=== PATIENT | male | born 1985 | race Caucasian/White ===

== ENCOUNTER 2018-09-13 21:06 | Observation (INO) ==
[2018-09-13 21:31] LABS: Basophils % 0.2 % (0.1-2.0); Eosinophils % 0.8 % (0.1-12.0); Hematocrit 45.5 % (42.0-52.0); Hemoglobin 15.7 g/dL (14.1-18.0); Lymphocytes # 1.1 K/mm3 (0.7-4.5); Lymphocytes % 25.9 % (10-50); Mean Corpuscular HGB Conc 34.5 g/dL (31.8-35.4); Mean Corpuscular Hemoglobin 31.6 pg (27.0-31.2); Mean Corpuscular Volume 91.6 fl (80-94); Monocytes # 0.4 K/mm3 (0.1-1.0); Monocytes % 8.3 % (1.7-9.3); Neutrophils # 2.8 K/mm3 (1.8-7.8); Neutrophils % 64.7 % (37.0-80.0); Platelet Count 146 K/mm3 (142-424); Red Blood Count 4.97 M/mm3 (4.60-6.20); Red Cell Distribution Width 12.6 % (11.5-17.5); White Blood Count 4.3 K/mm3 (4.8-10.8)
[2018-09-13 21:41] LABS: Albumin Level 3.5 gm/dL (3.4-5.0); Albumin/Globulin Ratio 0.9 (1.1-1.8); Anion Gap 11.6 mEq/L (5-15); Bilirubin,Total 0.4 mg/dL (0.2-1.0); Calcium 8.8 mg/dL (8.5-10.1); Globulin 3.8 gm/dl (1.3-3.2); Potassium 3.6 mmoL/L (3.5-5.1); Total Protein,Serum 7.3 gm/dL (6.4-8.2)
--- NOTE | 2018-09-13 22:45 | Emergency Department Note ---
ED Disposition Clinical Impression: Colitis Disposition: Admitted as Observation Condition on Discharge: Good Instructions: DI for Acute Abdomen Referrals: Nilesh Gaspar [Primary Care Provider] - - Critical Care Critical Care Time: No Attestation: On 09/13/18, the high probability of a clinically significant, sudden or life threatening deterioration of the following system(s) required my full and direct attention, intervention and personal management. The time I documented below is in addition to time spent performing reported procedures but includes the following listed in this critical care notation. Medical Decision Making - Medical Records Medical records reviewed: Yes: I reviewed the patient's medical records. - Zachary Inquiry Pt receiving controlled substance: No Vital Signs: 09/13/18 21:12 09/13/18 21:43 09/13/18 22:05 Temperature 97.9 F Temperature Source Oral Pulse Rate 69 Pulse Rate [Right Brachial] 90 90 Respiratory Rate 18 17 17 Blood Pressure 131/88 Blood Pressure [Right Arm] 137/90 138/81 Blood Pressure Mean [Right Arm] 105 100 Blood Pressure Source Automatic Cuff Blood Pressure Source [Right Arm] Automatic Cuff Automatic Cuff Blood Pressure Position Sitting Blood Pressure Position [Right Arm] Sitting Sitting 02 Sat by Pulse Oximetry 97 97 Oxygen Delivery Method Room Air Room Air Room Air 09/13/18 22:30 Temperature Temperature Source Pulse Rate Pulse Rate [Right Brachial] 84 Respiratory Rate 18 Blood Pressure Blood Pressure [Right Arm] 137/84 Blood Pressure Mean [Right Arm] 101 Blood Pressure Source Blood Pressure Source [Right Arm] Automatic Cuff Blood Pressure Position Blood Pressure Position [Right Arm] Sitting 02 Sat by Pulse Oximetry 97 Oxygen Delivery Method Room Air - Lab Data Lab results reviewed: Yes: I reviewed the patient's lab results. Lab Results 09/13/18 21:20: WBC 4.3 L, RBC 4.97, Hgb 15.7, Hct 45.5, MCV 91.6, MCH 31.6 H, MCHC 34.5, RDW 12.6, Plt Count 146, MPV 8.0, Neut % (Auto) 64.7, Lymph % (Auto) 25.9, Davidson % (Auto) 8.3, Eos % (Auto) 0.8, Baso % (Auto) 0.2, Neut # (Auto) 2.8, Lymph # (Auto) 1.1, Davidson # (Auto) 0.4, Eos # (Auto) 0.0, Baso # (Auto) 0.0 09/13/18 21:20: Sodium 140, Potassium 3.6, Chloride 103, Carbon Dioxide 29, Anion Gap 11.6, BUN 16, Creatinine 1.10, Estimated Creat Clear 129, Estimated GFR 76, Est GFR ( Amer) 92, Glucose 114 H, Calcium 8.8, Total Bilirubin 0.4, AST 19, ALT 37, Alkaline Phosphatase 53, Total Protein 7.3, Albumin 3.5, Globulin 3.8 H, Albumin/Globulin Ratio 0.9 L, Amylase 34 09/13/18 21:20: Lipase 114 Result diagrams: 09/13/18 21:20 09/13/18 21:20 Orders (Tests/Meds): ED MEDICATIONS Discontinued Medications Generic Name Dose Route Start Last Admin Trade Name Freq PRN Reason Stop Dose Admin Sodium Chloride 1,000 mls @ 999 mls/hr 09/13/18 21:30 09/13/18 21:32 Sod Chlor 0.9% 1000ml Bag IV 09/13/18 22:30 999 mls/hr .Q1H1M ENRIQUE Administration Iopamidol 75 ml 09/13/18 21:27 09/13/18 21:31 [id number]; 75ml Vial IV 09/13/18 21:28 75 ml ONCE ONE Administration Protocol Iopamidol 75 ml 09/13/18 22:10 09/13/18 22:11 [id number]; 75ml Vial IV 09/13/18 22:11 75 ml ONCE ONE Administration Protocol Ketorolac Tromethamine 30 mg 09/13/18 21:27 09/13/18 21:31 Toradol 30mg/Ml Vial IV 09/13/18 21:28 30 mg ONCE ONE Administration Ondansetron HCl 4 mg 09/13/18 21:27 09/13/18 21:32 Zofran 4mg/2ml Vial IV 09/13/18 21:28 4 mg ONCE ONE Administration Sodium Chloride 10 ml 09/13/18 21:27 09/13/18 21:31 Rad-Saline Flush 10ml Syringe IV 09/13/18 21:28 10 ml ONCE ONE Administration ORDERS Category Date Time Status CT abdomen pelvis w con Stat Cat Scan 09/13/18 21:23 Taken Diarrhea Panel, PCR Stat Lab 09/13/18 21:25 Ordered Occult Blood,Stool Stat Lab 09/13/18 21:25 Ordered - CT Data CT Scan: Abdomen, Pelvis Time Received: 22:[address] Reviewed: Yes: I have viewed the radiologist's interpretation Preliminary Findings: Abnormal (colitis) - Physician Consults Physician Consulted: christian Reason -: Admission Nausea/Vomiting/Diarrhea HPI - General Chief complaint: Abdominal Pain Stated complaint: Abd pain, diarrhea Time Seen by Provider: 09/13/18 21:30 Mode of Arrival: Ambulatory Limitations: No Limitations Description of Symptoms (Recalled from ER Triage Doc. by RN): DIARRHEA SINCE SATURDAY; SAW PCP ON SATURDAY WHO PRESCRIBED METRONIDAZOLE; PATIENT STATES HE HAS HAD FEVER ON AND OFF, LEFT LOWER ABDOMINAL PAIN. STATES LAST 3 BOWEL MOVEMENTS WERE DARK, AND BLOOD WAS PRESENT WHEN HE WIPES - History of Present Illness HPI Narrative: progressive lt sided abd pain with diarrhea and sl blood in stool - mp rash and occ fever - no known exposure - does work with cows - saw pcp and placed on flagyl - has been ill for about 3 days - no vomiting MD complaint: nausea, diarrhea, abdominal pain Onset (ago): day(s) Associated Abdominal Pain: Yes Location of pain: LLQ Severity: moderate Quality: cramping Associated symptoms: denies other symptoms - Related Data Home Medications Medication Instructions Recorded Confirmed metroNIDAZOLE [metroNIDAZOLE 500mg 500 mg PO TID 09/13/18 09/13/18 Tablet] Allergies Allergy/AdvReac Type Severity Reaction Status Date / Time No Known Allergies Allergy Verified 05/04/18 14:55 [facility] History I have reviewed the patient's past medical history: Yes Medical History: Denies:: Cancer, Diabetes Mellitus Type 1, Diabetes Mellitus Type 2, Gastrointestinal Bleed, Hypertension, MRSA, Renal Disease, Ulcer Other Surgeries: Yes: Appendectomy Amputation: No Fractures: No - Social History Smoking Status: Current every day smoker Tobacco Type: cigarettes Alcohol Intake: current Alcohol Intake Frequency:: holidays/special occasions only - Psychiatric History Expresses thoughts of harming self/others: None Suicide Plan Description: No Plan ROS Obtained: Yes All systems reviewed & no additional complaints - Constitutional Constitutional: Reports chills, Reports fever(s) - Eyes Eyes: Denies change in vision - ENT Ears, Nose, Mouth, and Throat: Denies sore throat - Cardiovascular Cardiovascular: Denies chest pain - Respiratory Respiratory: No cough - Gastrointestinal Gastrointestingal: Reports: as per HPI, abdominal pain, diarrhea, bright red blood in stools, nausea. Denies: black, tarry stools, vomiting - Genitourinary Male Genitourinary: Denies flank pain, Denies hematuria - Musculoskeletal Musculoskeletal: Denies joint pain, Denies joint swelling - Integumentary/Breasts Skin/Breast: Denies rash - Neurologic Neurologic: Denies seizure-like activity Physical Exam - General General appearance: alert, in no apparent distress - Head Head exam: normocephalic - Eye Eye exam: Present: PERRL, EOMI. Absent: scleral icterus - ENT ENT exam: Present: mucous membranes dry - Neck Neck exam: Present: trachea midline - Respiratory Respiratory exam: Present: normal lung sounds bilaterally. Absent: respiratory distress - Cardiovascular Cardiovascular exam: Present: regular rate - Abdominal Exam Abdominal exam: Present: soft, tenderness. Absent: guarding, rebound, rigidity Abdominal tenderness: Present: LLQ, moderate - Extremities Exam Extremities exam: Present: full ROM - Back Exam Back exam: Absent: CVA tenderness (L) - Neurological Exam Neurological exam: Present: alert, oriented X3, CN II-XII intact - Psychiatric Psychiatric exam: Present: normal affect - Skin Skin exam: Absent: rash
[2018-09-14 05:59] LABS: Basophils % 0.2 % (0.1-2.0); Eosinophils % 0.2 % (0.1-12.0); Hematocrit 46.3 % (42.0-52.0); Hemoglobin 15.2 g/dL (14.1-18.0); Lymphocytes # 0.6 K/mm3 (0.7-4.5); Lymphocytes % 21.3 % (10-50); Mean Corpuscular HGB Conc 32.8 g/dL (31.8-35.4); Mean Corpuscular Hemoglobin 30.7 pg (27.0-31.2); Mean Corpuscular Volume 93.6 fl (80-94); Mean Platelet Volume 7.6 fl (7.4-10.4); Monocytes # 0.1 K/mm3 (0.1-1.0); Monocytes % 2.4 % (1.7-9.3); Platelet Count 155 K/mm3 (142-424); Red Blood Count 4.95 M/mm3 (4.60-6.20); Red Cell Distribution Width 12.7 % (11.5-17.5); White Blood Count 2.6 K/mm3 (4.8-10.8)
[2018-09-14 06:18] LABS: Anion Gap 13.2 mEq/L (5-15); Calcium 8.3 mg/dL (8.5-10.1); Potassium 4.2 mmoL/L (3.5-5.1)
--- NOTE | 2018-09-14 07:55 | History & Physical Report ---
*Admission Date: 09/13/18 *Chief complaint: Left-sided abdominal pain *History of present illness: 33-year-old white male, no significant past history, saw his primary physician 2 days ago for left lower pain, diagnosed empirically with colitis and placed on Flagyl but did not improve over the next couple of days, came to the ER and found to have leukocytosis, evidence of colitis on CT scan was admitted to hospital for IV antibiotics and steroids. This morning he feels much better. Continues to have a little bit of pain. Never had colon disease, colitis or colonoscopy. [facility] History I have reviewed the patient's past medical history: Yes Medical History: Denies:: Cancer, Diabetes Mellitus Type 1, Diabetes Mellitus Type 2, Gastrointestinal Bleed, Hypertension, MRSA, Renal Disease, Ulcer Other Surgeries: Yes: Appendectomy Amputation: No Fractures: No - *Social History Educational Level: Completed High School Smoking Status: Current every day smoker Tobacco Type: cigarettes # Packs/Day (cigarettes): 1 #Yrs smoked (if former smoker): 15 Alcohol Intake: current Alcohol Intake Frequency:: other Occupational Status: employed Housing: house Household Members: spouse, children - Psychiatric History Expresses thoughts of harming self/others: None Suicide Plan Description: No Plan *Family Hx:: Cancer, Heart Attack, Hyperlipidemia, Hypertension, Stroke Review of Systems - Review of Systems Review of systems:: pertinent systems reviewed and negative unless documented below - *Neurologic Denies seizure-like activity Meds Home Medications Medication Instructions Recorded Confirmed Type metroNIDAZOLE [metroNIDAZOLE 500mg 500 mg PO TID 09/13/18 09/13/18 History Tablet] Allergies Allergy/AdvReac Type Severity Reaction Status Date / Time No Known Allergies Allergy Verified 05/04/18 14:55 Exam Vital signs and Labs for Last 24 Hours: Temp Pulse Resp BP Pulse Ox 98.5 F 58 L 15 111/68 96 09/14/18 07:51 09/14/18 07:51 09/14/18 07:51 09/14/18 07:51 09/14/18 07:51 Laboratory Results - last 24 hr 09/13/18 21:20: WBC 4.3 L, RBC 4.97, Hgb 15.7, Hct 45.5, MCV 91.6, MCH 31.6 H, MCHC 34.5, RDW 12.6, Plt Count 146, MPV 8.0, Neut % (Auto) 64.7, Lymph % (Auto) 25.9, Cross % (Auto) 8.3, Eos % (Auto) 0.8, Baso % (Auto) 0.2, Neut # (Auto) 2.8, Lymph # (Auto) 1.1, Cross # (Auto) 0.4, Eos # (Auto) 0.0, Baso # (Auto) 0.0 09/13/18 21:20: Sodium 140, Potassium 3.6, Chloride 103, Carbon Dioxide 29, Anion Gap 11.6, BUN 16, Creatinine 1.10, Estimated Creat Clear 129, Estimated GFR 76, Est GFR ( Amer) 92, Glucose 114 H, Calcium 8.8, Total Bilirubin 0.4, AST 19, ALT 37, Alkaline Phosphatase 53, Total Protein 7.3, Albumin 3.5, Globulin 3.8 H, Albumin/Globulin Ratio 0.9 L, Amylase 34 09/13/18 21:20: Lipase 114 09/13/18 21:20: ESR 22 H 09/13/18 21:20: C-Reactive Protein 12.0 H 09/14/18 05:20: WBC 2.6 L D, RBC 4.95, Hgb 15.2, Hct 46.3, MCV 93.6, MCH 30.7, MCHC 32.8, RDW 12.7, Plt Count 155, MPV 7.6, Neut % (Auto) 76.0, Lymph % (Auto) 21.3, Cross % (Auto) 2.4, Eos % (Auto) 0.2, Baso % (Auto) 0.2, Neut # (Auto) 2.0, Lymph # (Auto) 0.6 L, Cross # (Auto) 0.1, Eos # (Auto) 0.0, Baso # (Auto) 0.0 09/14/18 05:20: Sodium 142, Potassium 4.2, Chloride 106, Carbon Dioxide 27, Anion Gap 13.2, BUN 13, Creatinine 0.98, Estimated Creat Clear 147, Estimated GFR 87, Est GFR ( Amer) 105, Glucose 133 H, Calcium 8.3 L 09/14/18 06:55: Stool Occult Blood Positive A I & O for Last 24 hours: Intake & Output 11/2909/12/18 09/13/18 09/14/18 11:59 11:59 11:59 11:59 Intake Total 1148 / 1148 Balance 1148 / 1148 Weight 217 lb 7 oz Narrative: Patient is pleasant, talkative appears stated age, appears in good health. Oropharynx clear Lungs clear Heart rate regular without murmurs. Abdomen soft, bowel sounds noted, left-sided tenderness is noted but patient reports it is much improved, no rebound or guarding. No CVA tenderness. Neurologic exam intact, no edema, no clubbing, no skin rash. - Constitutional no acute distress Assessment and Plan (1) Colitis Current visit: Yes Status: Acute Category: Medical Code(s): K52.9 - Noninfective gastroenteritis and colitis, unspecified Patient is improved nicely. Advance diet today. Probable discharge soon. We will set up for outpatient colonoscopy.
--- NOTE | 2018-09-14 10:35 | Pharmacy Consult Notes ---
[facility] Pharmacy VTE Monitoring - Patient Demographics Admission date: 09/14/18 Report Date: 09/14/18 Time: 10:34 Allergies/Adverse Reactions: Patient Allergies No Known Allergies Allergy (Verified 05/04/18 14:55) Height: 1.78 m Weight: 98.628 kg Patient Problems: Current Active Problems Colitis (Acute) - VTE Risk Labs: VTE Related Lab Results Hgb 15.2 g/dL (14.1-18.0) 09/14/18 05:20 Hct 46.3 % (42.0-52.0) 09/14/18 05:20 Plt Count 155 K/mm3 (142-424) 09/14/18 05:20 BUN 13 mg/dL (7-18) 09/14/18 05:20 Creatinine 0.98 mg/dL (0.70-1.30) 09/14/18 05:20 Estimated Creat Clear 147 mL/min (50-200) 09/14/18 05:20 VTE Score: 1 VTE Risk Level: Low Risk - Prophylaxis Types of VTE Prophylaxis: TEDS Knee High (PIERRE HOSE ORDERED ) Location of Applied Device: Bilateral Lower Extremeties
--- NOTE | 2018-09-14 16:26 | Discharge Summary ---
General - General Admission date:: 09/13/18 Discharge date: 09/14/18 HPI HPI: 33-year-old white male, no significant past history, saw his primary physician 2 days ago for left lower pain, diagnosed empirically with colitis and placed on Flagyl but did not improve over the next couple of days, came to the ER and found to have leukocytosis, evidence of colitis on CT scan was admitted to hospital for IV antibiotics and steroids. This morning he feels much better. Continues to have a little bit of pain. Never had colon disease, colitis or colonoscopy. Hospital Course Hospital Course: Patient was admitted to hospital, rehydrated, treated with IV antibiotics and steroids for colitis. Patient improved very nicely and was able to be fed today and tolerated his diet well. Patient was found to have Campylobacter positive test in stool, and this was discussed with patient. Patient will be discharged home today given his significant clinical improvement with azithromycin daily for 3 days. He will fo llow-up with his regular physician. I also recommended that he see Dr. Rene in our surgery department to schedule colonoscopy. Objective Vital signs: Temp Pulse Resp BP Pulse Ox 98.3 F 95 H 15 116/61 96 09/14/18 15:28 09/14/18 15:28 09/14/18 15:28 09/14/18 15:28 09/14/18 15:28 no acute distress, average body habitus - *Routine HEENT Exam Head: Present: normocephalic, atraumatic Eye: Present: EOMI. Absent: conjunctival icterus - *Routine Neck Exam Present: supple, full ROM. Absent: JVD - *Routine Respiratory Exam Present: CTA bilaterally. Absent: accessory muscle use - *Routine Cardiovascular Exam Present: RRR, Normal S1, Normal S2. Absent: murmur - *Routine Abdominal Exam Present: soft, normoactive bowel sounds. Absent: tenderness - *Routine Extremities Exam Present: full ROM. Absent: cyanosis, clubbing, edema - *Routine Neurological Exam Present: alert, oriented X3 Results Labs on day of discharge: Labs from last 24 hours 09/14/18 09/14/18 09/14/18 06:55 06:55 05:20 WBC RBC Hgb Hct MCV MCH MCHC RDW Plt Count MPV Neut % (Auto) Lymph % (Auto) Vermilion % (Auto) Eos % (Auto) Baso % (Auto) Neut # (Auto) Lymph # (Auto) [place] # (Auto) Eos # (Auto) Baso # (Auto) ESR Sodium 142 Potassium 4.2 Chloride 106 Carbon Dioxide 27 Anion Gap 13.2 BUN 13 Creatinine 0.98 Estimated Creat Clear 147 Estimated GFR 87 Est GFR ( Amer) 105 Glucose 133 H Calcium 8.3 L Total Bilirubin AST ALT Alkaline Phosphatase C-Reactive Protein Total Protein Albumin Globulin Albumin/Globulin Ratio Amylase Lipase Stool Occult Blood Positive A Stl Aeromonas (PCR) Not detected Stl C. cayetanensis PCR Not detected Stool Rotavirus (PCR) Not detected Stl Adenov F 40/41 PCR Not detected Stool Astrovirus (PCR) Not detected Stool Campylobacter PCR Detected A Stl C.difficile Tox PCR Not detected Stool Cryptosporidium PCR Not detected Stl E.coli Shiga Tox PCR Not detected Stool E coli O157 PCR Not detected Stl Enterotoxigenic E PCR Not detected Stool EPEC (PCR) Not detected Stool EAEC (PCR) Not detected Stl E. histolytica PCR Not detected Stool Giardia Lamblia PCR Not detected Stool Salmonella PCR Not detected Stool Sapovirus (PCR) Not detected Stl P. shigelloides PCR Not detected Stl Shigella/EIEC PCR Not detected St Y.enterocolitica PCR Not detected Stool Vibrio (PCR) Not detected Stl Vibrio cholerae PCR Not detected Stl Norovirus GI/GII PCR Not detected 09/14/18 09/13/18 09/13/18 05:20 21:20 21:20 WBC 2.6 L D RBC 4.95 Hgb 15.2 Hct 46.3 MCV 93.6 MCH 30.7 MCHC 32.8 RDW 12.7 Plt Count 155 MPV 7.6 Neut % (Auto) 76.0 Lymph % (Auto) 21.3 Vermilion % (Auto) 2.4 Eos % (Auto) 0.2 Baso % (Auto) 0.2 Neut # (Auto) 2.0 Lymph # (Auto) 0.6 L Vermilion # (Auto) 0.1 Eos # (Auto) 0.0 Baso # (Auto) 0.0 ESR 22 H Sodium Potassium Chloride Carbon Dioxide Anion Gap BUN Creatinine Estimated Creat Clear Estimated GFR Est GFR ( Amer) Glucose Calcium Total Bilirubin AST ALT Alkaline Phosphatase C-Reactive Protein 12.0 H Total Protein Albumin Globulin Albumin/Globulin Ratio Amylase Lipase Stool Occult Blood Stl Aeromonas (PCR) Stl C. cayetanensis PCR Stool Rotavirus (PCR) Stl Adenov F PCR Stool Astrovirus (PCR) Stool Campylobacter PCR Stl C.difficile Tox PCR Stool Cryptosporidium PCR Stl E.coli Shiga Tox PCR Stool E coli O157 PCR Stl Enterotoxigenic E PCR Stool EPEC (PCR) Stool EAEC (PCR) Stl E. histolytica PCR Stool Giardia Lamblia PCR Stool Salmonella PCR Stool Sapovirus (PCR) Stl P. shigelloides PCR Stl Shigella/EIEC PCR St Y.enterocolitica PCR Stool Vibrio (PCR) Stl Vibrio cholerae PCR Stl Norovirus GI/GII PCR 09/13/18 09/13/18 09/13/18 21:20 21:20 21:20 WBC 4.3 L RBC 4.97 Hgb 15.7 Hct 45.5 MCV 91.6 MCH 31.6 H MCHC 34.5 RDW 12.6 Plt Count 146 MPV 8.0 Neut % (Auto) 64.7 Lymph % (Auto) 25.9 Vermilion % (Auto) 8.3 Eos % (Auto) 0.8 Baso % (Auto) 0.2 Neut # (Auto) 2.8 Lymph # (Auto) 1.1 Vermilion # (Auto) 0.4 Eos # (Auto) 0.0 Baso # (Auto) 0.0 ESR Sodium 140 Potassium 3.6 Chloride 103 Carbon Dioxide 29 Anion Gap 11.6 BUN 16 Creatinine 1.10 Estimated Creat Clear 129 Estimated GFR 76 Est GFR ( Amer) 92 Glucose 114 H Calcium 8.8 Total Bilirubin 0.4 AST 19 ALT 37 Alkaline Phosphatase 53 C-Reactive Protein Total Protein 7.3 Albumin 3.5 Globulin 3.8 H Albumin/Globulin Ratio 0.9 L Amylase 34 Lipase 114 Stool Occult Blood Stl Aeromonas (PCR) Stl C. cayetanensis PCR Stool Rotavirus (PCR) Stl Adenov F PCR Stool Astrovirus (PCR) Stool Campylobacter PCR Stl C.difficile Tox PCR Stool Cryptosporidium PCR Stl E.coli Shiga Tox PCR Stool E coli O157 PCR Stl Enterotoxigenic E PCR Stool EPEC (PCR) Stool EAEC (PCR) Stl E. histolytica PCR Stool Giardia Lamblia PCR Stool Salmonella PCR Stool Sapovirus (PCR) Stl P. shigelloides PCR Stl Shigella/EIEC PCR St Y.enterocolitica PCR Stool Vibrio (PCR) Stl Vibrio cholerae PCR Stl Norovirus GI/GII PCR DS: Diagnosis - Discharge Diagnosis (1) Colitis Status: Acute (2) Campylobacter enteritis Status: Acute Discharge Plan - Patient Discharge Instructions ACTIVITY: Continue current activity DIET: low fat, low cholesterol Patient Instructions: Fat-Restricted Diet, DI for Colitis - Follow up Plan Follow up with: Artemio Rene MD [Staff Physician] - 1 month Nilesh Gaspar [Primary Care Provider] - 1 week Disposition: Home, Self-Fpc Medications: Home Medications Medication Instructions Recorded Confirmed Type metroNIDAZOLE [metroNIDAZOLE 500mg 500 mg PO TID 09/13/18 09/13/18 History Tablet] Prescriptions/Medication Reconciliation: New Azithromycin [Azithromycin 500mg Tab] 500 mg PO DAILY #3 tab Discontinued metroNIDAZOLE [metroNIDAZOLE 500mg Tablet] 500 mg PO TID
== END 2018-09-14 16:50 | disposition home or self-care (01) ==
LOC: 2ND 21:06 → ER 21:06 → 2ND 23:37
PROVIDERS: ADMIT Internal Medicine Adolescent Medicine; ATTEND Internal Medicine Adolescent Medicine
DX: A04.5 Campylobacter enteritis
CPT/HCPCS: 36415; 74177; 80048; 80053; 82150; 82272; 83690; 85025; 85651; 86140; 87507; 96365; 96366; 96367; 96374; 96375; 96376; 99285; G0328; G0378; J1335; J2405; Q9967

== ENCOUNTER 2023-03-17 10:11 | Emergency (ER) | payer SELFPAY ==
[2023-03-17 10:12] VITALS: BP 124/74; PULSE 55; RESP 18; TEMP 36.4; O2SAT 99; BMI 29.4
--- NOTE | 2023-03-17 10:28 | [facility].EDGENADL ---
Discharge Plan Disposition Patient Disposition: Home, Self-Care Prescriptions Prescriptions: New prednisone [prednisone] 20 mg tablet 20 mg PO BID Qty: 10 0RF ketorolac 10 mg tablet 10 mg PO Q8H PRN (Reason: pain) 3 Days Qty: 10 0RF cyclobenzaprine 10 mg tablet 10 mg PO TID Qty: 21 0RF No Action prednisone 20 mg tablet 20 mg PO BID 5 Days Qty: 10 0RF amoxicillin-pot clavulanate [Augmentin] 875-125 mg tablet 1 tab PO BID 10 Days Qty: 20 0RF albuterol sulfate 90 mcg/actuation aerosol powdr breath activated 2 inh INHALATION Q4-6H PRN (Reason: shortness of breath or wheezing) Qty: 1 0RF Referrals Follow up/Referrals: Nilesh Gaspar [Primary Care Provider] - See instructions Clinical Impressions Clinical Impression: Lumbar back pain Instructions Patient Instructions: DI for Low Back Pain Discharge ED Provider: Enrrique (ED),[address] General Adult HPI General Chief complaint: PAIN Stated complaint: back pain Time Seen by Provider: 03/17/23 10:28 Mode of Arrival: Ambulatory Source of Information: Patient and Medical Record Limitations: No Limitations Description of Symptoms (Recalled from ER Triage Doc. by RN): pt reports to ED c/o low back pain denies any injury known injury. pt states he had surgery on his L4 and L5 in the past. pt denies any loss of bowel or bladder. pt denies any pain with urination. History of Present Illness HPI narrative: pt with hx of lower back pain with prev surg and presents with pain without radiation and no fever rash or trauma - pain over the last few days Onset (ago): day(s) Location: back Severity: moderate Associated symptoms: denies other symptoms Related Data Previous Rx's Medication Instructions Recorded albuterol sulfate 90 mcg/actuation 2 inh inhalation Q4-6H PRN 12/19/19 breath activated powder inhaler shortness of breath or wheezing #1 ea amoxicillin 875 mg-potassium 1 tab PO BID 10 days #20 tabs 12/19/19 clavulanate 125 mg tablet (Augmentin) prednisone 20 mg tablet 20 mg PO BID 5 days #10 tabs 12/19/19 cyclobenzaprine 10 mg tablet 10 mg PO TID #21 tabs 03/17/23 ketorolac 10 mg tablet 10 mg PO Q8H PRN pain 3 days #10 03/17/23 tabs prednisone 20 mg tablet 20 mg PO BID #10 tabs 03/17/23 Allergies Allergy/AdvReac Type Severity Reaction Status Date / Time No Known Allergies Allergy Verified 12/19/19 10:28 PFSH [facility] Disclaimer: The information contained in this section may have been updated after the patient was seen, as this information can be updated by other users. Social History Smoking Status: Current every day smoker tobacco type: cigarettes packs per day: 1 second hand exposure: Yes alcohol intake: current substance use type: denies use current occupational status: employed Travel in the last 8 weeks: None household members: spouse and children housing: house current occupation: armored truck driver caffeine: Yes ROS Obtained: Yes All systems reviewed & no additional complaints except as documented Physical Exam General General appearance: alert Head Head exam: normocephalic Eye Eye exam: Present PERRL and EOMI ENT ENT exam: Present mucous membranes moist Neck Neck exam: Present trachea midline Respiratory Respiratory exam: Absent respiratory distress Cardiovascular Cardiovascular exam: Present regular rate Extremities Exam Extremities exam: Present full ROM Back Exam Back exam: Present tenderness and paraspinal tenderness; Absent full ROM Neurological Exam Neurological exam: Present alert, oriented X3 and CN II-XII intact; Absent motor sensory deficit Psychiatric Psychiatric exam: Present normal affect Skin Skin exam: Absent rash Medical Decision Making Medical Records Medical records reviewed: Yes I reviewed the patient's medical records. Zachary Inquiry Pt receiving controlled substance: No Vital Signs: 03/17/23 10:12 Temperature 97.5 F L Temperature Source Oral
[2023-03-17 10:54] VITALS: BP 124/74; PULSE 55; RESP 18; TEMP 36.4; O2SAT 99
== END 2023-03-17 10:52 | disposition home or self-care (01) ==
PROVIDERS: Emergency Provider Emergency Medicine; PCP Pediatrics
DX: M54.50 Low back pain, unspecified (principal); F17.210 Nicotine dependence, cigarettes, uncomplicated
CPT/HCPCS: 99283

== ENCOUNTER 2024-10-07 09:46 | Emergency (ER) | payer BC, SELFPAY ==
[2024-10-07 09:47] VITALS: BP 117/88; PULSE 72; RESP 18; TEMP 36.4; O2SAT 97; BMI 30.9
[2024-10-07] MEDS: TET/DIPHTH/PERT-ADULT 0.5ML SYRINGE 0.5 ML IM (10:17)
--- NOTE | 2024-10-07 10:21 | HMH.EDGENADL ---
Discharge Plan Disposition Patient Disposition: Home, Self-Care Chief Complaint: Wound/Laceration Prescriptions Prescriptions: No Action prednisone 20 mg tablet 20 mg PO BID 5 Days Qty: 10 0RF amoxicillin-pot clavulanate [Augmentin] 875-125 mg tablet 1 tab PO BID 10 Days Qty: 20 0RF albuterol sulfate 90 mcg/actuation aerosol powdr breath activated 2 inh INHALATION Q4-6H PRN (Reason: shortness of breath or wheezing) Qty: 1 0RF prednisone [prednisone] 20 mg tablet 20 mg PO BID Qty: 10 0RF ketorolac 10 mg tablet 10 mg PO Q8H PRN (Reason: pain) 3 Days Qty: 10 0RF cyclobenzaprine 10 mg tablet 10 mg PO TID Qty: 21 0RF Referrals Follow up/Referrals: Nilesh Gaspar [Primary Care Provider] - See instructions Activity Restrictions/Add. Instructions Additional Instructions/Restrictions: At this time it was felt you are safe to be discharged home. If new or worsening symptoms please do not hesitate to return the emergency department. It is okay to wash your hands and shower, do not submerge in water until it is healed and follow-up with your family doctor in 10 days for likely suture removal at that time. Clinical Impressions Clinical Impression: Hand laceration Instructions Patient Instructions: DI for Laceration Repair Print Language Print Language: Irish Discharge ED Provider: Donald Linder General Adult HPI General Chief complaint: Wound/Laceration Stated complaint: AO 10/07/24 0746 laceration left hand Time Seen by Provider: 10/07/24 10:21 Mode of Arrival: Ambulatory Source of Information: Patient Limitations: No Limitations Description of Symptoms (Recalled from ER Triage Doc. by RN): c/o left thumb laceration after cutting it with a knife while trying to open up a Shanelle present. History of Present Illness HPI narrative: Patient is a 39-year-old [id number] male who presents emerged part for evaluation of a left hand laceration. Onset was acute just prior to arrival he was opening up presents with a new knife resulting in a laceration to his left thenar eminence. No other trauma. No other acute complaints at this time Tdap is not up-to-date. Related Data Previous Rx's ?Medication ?Instructions ?Recorded albuterol sulfate 90 mcg/actuation 2 inh inhalation Q4-6H PRN 12/19/19 breath activated powder inhaler shortness of breath or wheezing #1 ea amoxicillin 875 mg-potassium 1 tab PO BID 10 days #20 tabs 12/19/19 clavulanate 125 mg tablet (Augmentin) prednisone 20 mg tablet 20 mg PO BID 5 days #10 tabs 12/19/19 cyclobenzaprine 10 mg tablet 10 mg PO TID #21 tabs 03/17/23 ketorolac 10 mg tablet 10 mg PO Q8H PRN pain 3 days #10 03/17/23 tabs prednisone 20 mg tablet 20 mg PO BID #10 tabs 03/17/23 Allergies Allergy/AdvReac Type Severity Reaction Status Date / Time No Known Allergies Allergy Verified 12/19/19 10:28 [facility] Disclaimer: The information contained in this section may have been updated after the patient was seen, as this information can be updated by other users. Social History Smoking Status: Current every day smoker tobacco type: cigarettes packs per day: 1 second hand exposure: Yes alcohol intake: current alcohol intake frequency: other substance use type: denies use current occupational status: employed Travel in the last 8 weeks: None household members: spouse and children housing: house current occupation: truck driver salesperson caffeine: Yes Have you lived/traveled outside [place] in past 30 days?: No Contact w/someone who lives/traveled outside [place] past 30 days?: No Exposure to someone with infectious disease in past 14 days?: No Do you have a fever (greater than 100.4 F or 38 C)?: No Have you tested positive for COVID-19: No Exposed to someone with COVID-19 in past 14 days?: No Do you have a sore throat?: No Do you have a cough?: No Do you have any weakness?: No Do you have any diarrhea?: No Are you experiencing any unusual bleeding?: No Do you have any muscle aches/pain?: No Do you have any abdominal pain?: No Are you experiencing loss of taste or smell?: No Other Medical History Have you received the Flu Vaccine for this season: No Have you received the Pneumonia Vaccine: No ROS Obtained: Yes Systems reviewed as appropriate & no additional complaints except as documented Physical Exam General General appearance: alert and in no apparent distress Head Head exam: atraumatic and normocephalic Eye Eye exam: Present PERRL ENT ENT exam: Present mucous membranes moist Neck Neck exam: Present normal inspection Chest Chest inspection: Present normal inspection and symmetric chest wall rise Respiratory Respiratory exam: Absent respiratory distress Cardiovascular Cardiovascular exam: Present regular rate Extremities Exam Extremities exam: Present other (3.5 cm linear laceration over the left thenar eminence, no arterial hemorrhage. Active range of motion in all joints of the left thumb and index finger. Distally neurovascular intact with flash cap refill and sensation intact light touch distally on the digits.) Neurological Exam Neurological exam: Present alert Psychiatric Psychiatric exam: Present normal affect Skin Skin exam: Present warm and dry Medical Decision Making Medical Records Screening: Per USPSTF and CDC recommendations, given the prevalence of disease in our region, it is our hospital?s policy to screen for HIV and viral Hepatitis for all patients aged 18 and over and those with ongoing risk factors. [place] Inquiry Pt receiving controlled substance: No Vital Signs: 10/07/24 09:47 Temperature 97.5 F L Temperature Source Oral Pulse Rate [Left Radial] 72 Respiratory Rate 18 Blood Pressure [Right Arm] 117/88 Blood Pressure Mean [Right Arm] 97 02 Sat by Pulse Oximetry 97 Oxygen Delivery Method Room Air Orders (Tests/Meds): ED MEDICATIONS Generic Name Dose Route Start Last Admin Trade Name Freq PRN Reason Stop Dose Admin Bacitracin 1 each 10/07/24 11:49 Bacitracin Oint 0.9gm Udp TP 10/07/24 11:50 ONCE ONE Discontinued Medications Generic Name Dose Route Start Last Admin Trade Name Freq PRN Reason Stop Dose Admin Tetanus/Reduced Diphtheria/Acell Pertussis 0.5 ml 10/07/24 10:11 10/07/24 10:17 Tet/Diphth/Pert-Adult 0.5ml Syringe IM 10/07/24 10:12 0.5 ml .ONCE ONE Administration Medical Decision Narrative: In summary patient is a 39-year-old male past medical history described above who presents emergency department for evaluation of a laceration. Patient's tetanus is not up-to-date will be updated. He will require primary repair. I have no concern for tendon or neurovascular injury or retained foreign body therefore workup with imaging was considered with x-ray will be deferred at this time. Wound underwent primary repair with success and patient is appropriate for discharge at this time. Procedure: Procedure form was laceration repair. Location was left thenar eminence, length was 3.5 cm. Procedure performed by Donald Linder. Wound was numbed with 9 cc of 1% lidocaine with epinephrine, anesthesia achieved. Wound was irrigated with Hibiclens and sterile water. Wound was repaired with 4-0 Prolene, simple erupted fashion, number of sutures placed was 5. Wound was well-approximated. Patient tolerated procedure well. There were no immediate complications. Critical Care Critical Care Time Critical Care Time: No
[2024-10-07] MEDS: BACITRACIN OINT 0.9GM UDP 1 EACH TP (11:53)
[2024-10-07 11:54] VITALS: BP 120/72; PULSE 78; RESP 18; TEMP 36.6; O2SAT 100
== END 2024-10-07 11:54 | disposition home or self-care (01) ==
PROVIDERS: Emergency Provider Emergency Medicine; PCP Pediatrics
DX: S61.412A Laceration without foreign body of left hand, initial encounter (principal); M79.645 Pain in left finger(s); W26.0XXA Contact with knife, initial encounter; Y93.89 Activity, other specified; Y92.008 Other place in unspecified non-institutional (private) residence as the place of occurrence of the external cause; Z23 Encounter for immunization
CPT/HCPCS: 90471; 90715; 99283